=== PATIENT | male | born 1955 | race African-American/Black ===

== ENCOUNTER 2022-08-12 18:13 | Observation (INO) | payer OTHER ==
[2022-08-12] MEDS ORDERED: MIDAZOLAM HCL 2 MG/2 ML SINGLE DOSE VIAL IVPUSH ONE (22:58)
[2022-08-12 23:16] LABS: HEMATOCRIT 38.1 % (35.4-49); HEMOGLOBIN 12.5 GM/dL (11.7-16.9); MCH 28.9 pg (25.7-33.7); MCHC 32.9 g/dl (32.0-35.9); MEAN CELL VOLUME 87.8 fl (80-96); PLATELET COUNT 191 10^3/uL (134-434); RBC 4.34 M/mm3 (4.00-5.60); RDW 14.4 % (11.9-15.9); WHITE BLOOD COUNT 8.6 K/mm3 (4.0-10.0)
[2022-08-12] MEDS ORDERED: SODIUM CHLORIDE 500 ML IV STA (23:34)
[2022-08-12 23:38] LABS: ALBUMIN 3.5 g/dl (3.4-5.0); BLOOD UREA NITROGEN 30.4 mg/dL (7-18); CALCIUM 9.7 mg/dL (8.5-10.1)
[2022-08-12 23:41] LABS: CREATININE 1.9 mg/dL (0.55-1.3)
[2022-08-12 23:43] LABS: BILIRUBIN,TOTAL 0.8 mg/dL (0.2-1); TOT PROT 6.6 g/dl (6.4-8.2)
[2022-08-13] MEDS ORDERED: DEXTROSE 5%-NORMAL SALINE 1,000 ML IV SCH (00:45)
[2022-08-13] MEDS ORDERED: ACETAMINOPHEN 325 MG TABLET (FP) PO PRN (01:00)
[2022-08-13 03:56] LABS: PHOSPHOROUS 4.1 mg/dL (2.5-4.9)
[2022-08-13] MEDS: INSULIN SLIDING SCALE (NOVOLOG) 1 VIAL SQ SCH ×3 (07:50→18:25)
[2022-08-13 10:28] LABS: BASO % 0.7 % (0-2.0); HEMATOCRIT 34.7 % (35.4-49); HEMOGLOBIN 11.3 GM/dL (11.7-16.9); MCH 28.9 pg (25.7-33.7); MCHC 32.7 g/dl (32.0-35.9); MEAN CELL VOLUME 88.5 fl (80-96); MEAN PLT VOLUME 9.9 fl (7.5-11.1); MONO % 9.8 % (3.8-10.2); NEUT % 68.5 % (42.8-82.8); PLATELET COUNT 94 10^3/uL (134-434); RBC 3.92 M/mm3 (4.00-5.60); RDW 14.2 % (11.9-15.9); WHITE BLOOD COUNT 5.6 K/mm3 (4.0-10.0)
[2022-08-13 10:31] LABS: BLOOD UREA NITROGEN 33.6 mg/dL (7-18); CALCIUM 8.8 mg/dL (8.5-10.1)
[2022-08-13 10:35] LABS: CREATININE 1.9 mg/dL (0.55-1.3)
[2022-08-13 11:06] LABS: ALBUMIN 3.1 g/dl (3.4-5.0)
[2022-08-13 11:12] LABS: BILIRUBIN,TOTAL 0.6 mg/dL (0.2-1); TOT PROT 5.8 g/dl (6.4-8.2)
[2022-08-13 16:47] VITALS: BMI 30.2
[2022-08-13] MEDS ORDERED: ACETAMINOPHEN 1000 MG/100 ML BAG IVPB PRN (16:58)
[2022-08-13] MEDS ORDERED: PNEUMOC 20-VAL CONJ-DIP CRM/PF 0.5 ML SYRINGE IM ONE (17:15)
[2022-08-14] MEDS ORDERED: SACUBITRIL/VALSARTAN 49 MG-51 MG TABLET PO ONE (02:52)
[2022-08-14] MEDS ORDERED: GABAPENTIN 300 MG CAPSULE PO ONE (03:00)
[2022-08-14] MEDS ORDERED: ALBUTEROL SO4 HFA INHALER IH PRN (07:46)
[2022-08-14 08:39] LABS: BASO % 0.5 % (0-2.0); EOS % 2.6 % (0-4.5); HEMATOCRIT 36.9 % (35.4-49); HEMOGLOBIN 12.3 GM/dL (11.7-16.9); LYMPH % 13.3 % (8-40); MCH 29.2 pg (25.7-33.7); MCHC 33.5 g/dl (32.0-35.9); MEAN CELL VOLUME 87.3 fl (80-96); MEAN PLT VOLUME 9.1 fl (7.5-11.1); MONO % 8.1 % (3.8-10.2); NEUT % 75.5 % (42.8-82.8); PLATELET COUNT 186 10^3/uL (134-434); RBC 4.22 M/mm3 (4.00-5.60); RDW 14.4 % (11.9-15.9); WHITE BLOOD COUNT 6.4 K/mm3 (4.0-10.0)
[2022-08-14 09:27] LABS: CALCIUM 9.1 mg/dL (8.5-10.1)
[2022-08-14 09:28] LABS: ALBUMIN 3.2 g/dl (3.4-5.0); BLOOD UREA NITROGEN 28.1 mg/dL (7-18); MAGNESIUM 1.8 mg/dL (1.8-2.4)
[2022-08-14 09:31] LABS: BILIRUBIN,TOTAL 0.8 mg/dL (0.2-1); CREATININE 1.4 mg/dL (0.55-1.3)
[2022-08-14 09:33] LABS: TOT PROT 6.1 g/dl (6.4-8.2)
[2022-08-14] MEDS ORDERED: SACUBITRIL/VALSARTAN 49 MG-51 MG TABLET PO SCH (10:00)
[2022-08-14] MEDS ORDERED: CARVEDILOL 25 MG TABLET (FP) PO SCH (10:00)
[2022-08-14] MEDS: APIXABAN 5 MG TABLET PO SCH ×2 (10:49→14:22)
[2022-08-14] MEDS: GABAPENTIN 300 MG CAPSULE PO SCH ×2 (10:49→14:22)
[2022-08-14] MEDS: CALCITRIOL 0.25 MCG CAPSULE (FP) PO SCH ×2 (10:50→14:22)
[2022-08-14] MEDS ORDERED: REGADENOSON 0.4 MG/5 ML PRE-FILLED SYRINGE IVPUSH ONE ×2 (12:37→13:00)
[2022-08-14 14:08] VITALS: RESP 18
[2022-08-14 18:49] VITALS: BP 156/80; PULSE 68; TEMP 97.8
[2022-08-14] MEDS ORDERED: ATORVASTATIN CA 40 MG TABLET (FP) PO SCH (22:00)
== END 2022-08-14 20:54 | disposition home or self-care (01) ==
LOC: JER 18:13 → JERBED 21:14 → J4W 08-13 14:46
PROVIDERS: ADMIT Internal Medicine; ATTEND Nurse Practitioner Acute Care
PROC: 3E033NZ Introduction of Analgesics, Hypnotics, Sedatives into Peripheral Vein, Percutaneous Approach (ICD-10-PCS; principal; 2022-08-12)
PROC: 3E033GC Introduction of Other Therapeutic Substance into Peripheral Vein, Percutaneous Approach (ICD-10-PCS; 2022-08-12)
PROC: 3E0234Z Introduction of Serum, Toxoid and Vaccine into Muscle, Percutaneous Approach (ICD-10-PCS; 2022-08-12)
PROC: 3E0337Z Introduction of Electrolytic and Water Balance Substance into Peripheral Vein, Percutaneous Approach (ICD-10-PCS; 2022-08-12)
DX: N17.9 Acute kidney failure, unspecified (principal); E11.9 Type 2 diabetes mellitus without complications; G35 Multiple sclerosis; I10 Essential (primary) hypertension; R55 Syncope and collapse; Z95.810 Presence of automatic (implantable) cardiac defibrillator; R00.1 Bradycardia, unspecified; I71.9 Aortic aneurysm of unspecified site, without rupture; E66.8 Other obesity; Z68.30 Body mass index [BMI] 30.0-30.9, adult; Z96.643 Presence of artificial hip joint, bilateral; Z29.8 Encounter for other specified prophylactic measures; Z23 Encounter for immunization
CPT/HCPCS: 0241U-QW; 36415; 71250-TC; 78452-TC; 80048; 80053; 82962; 83735; 84100; 84484; 85025; 85027; 90677; 93005; 93010; 93017; 93306-TC; 93880-TC; 96365; 96372; 96374; 96375; 97116-GP; 97161-GP; 99285-25; A9502; G0378; J2785